=== PATIENT | male | born 1980 | race Caucasian/White ===

== ENCOUNTER 2019-01-15 11:47 | Emergency (ER) | payer OTHER ==
[~2019-01-15] VITALS: Ht 172.7 cm; Wt 111.1 kg
[2019-01-15 12:02] VITALS: Ht 172.7 cm; Wt 111.1 kg
[2019-01-15 12:30] VITALS: BP 118/80
== END 2019-01-15 12:30 | disposition home or self-care (01) ==
LOC: ED 11:47
DX: B34.9 Viral infection, unspecified (principal)

== ENCOUNTER 2019-01-19 17:20 | Emergency (ER) | payer OTHER ==
[~2019-01-19] VITALS: Ht 172.7 cm; Wt 110.7 kg
[2019-01-19 17:24] VITALS: Ht 172.7 cm; Wt 110.7 kg
[2019-01-19 19:00] VITALS: BP 127/70
== END 2019-01-19 19:00 | disposition home or self-care (01) ==
LOC: ED 17:20
DX: S33.5XXA Sprain of ligaments of lumbar spine, initial encounter (principal); V89.2XXA Person injured in unspecified motor-vehicle accident, traffic, initial encounter; Y93.I9 Activity, other involving external motion; Y92.413 State road as the place of occurrence of the external cause; Y99.8 Other external cause status; Z90.89 Acquired absence of other organs